=== PATIENT | female | born 1960 | race Caucasian/White ===

== ENCOUNTER 2021-01-03 14:49 | Inpatient (IN) | payer BC ==
[2021-01-03] MEDS ORDERED: Simvastatin 40 MG TAB PO SCH (21:00)
[2021-01-03] MEDS ORDERED: Fluticasone Propionate Nasal Spray 16 gm Bottle NASAL SCH (21:00)
[2021-01-03] MEDS ORDERED: Loperamide HCl 2 MG CAP PO PRN (21:05)
[2021-01-03] MEDS ORDERED: Mag-Al Plus 1200 MG/1200 MG/120 MG/30 ML UDCUP PO PRN (21:05)
[2021-01-03] MEDS ORDERED: Dextrose 5% in Water 1,000 ML IV PRN (21:15)
[2021-01-03] MEDS ORDERED: Dextrose 50% Abboject 50 ML SYRINGE IVP PRN (21:15)
[2021-01-03] MEDS: tiZANidine HCl 4 MG TAB PO SCH (21:24)
[2021-01-03] MEDS: Loratadine 10 MG TAB PO SCH (21:24)
[2021-01-03] MEDS: Citalopram 20 MG TAB PO SCH (21:25)
[2021-01-03] MEDS: Lisinopril 20 MG TAB PO SCH ×2 (21:25→22:49)
[2021-01-03] MEDS: Lantus 1000 UNITS/10 ML VIAL SC SCH (21:26)
[2021-01-03] MEDS: Rifampin 300 MG CAP PO SCH (21:26)
[2021-01-03] MEDS: HumaLOG 300 UNITS/3 ML VIAL SC PRN ×2 (21:27→22:13)
[2021-01-03] MEDS: Acetaminophen 325 MG TAB PO SCH (23:25)
[2021-01-04 05:45] LABS: ALT (SGPT) 15 U/L (8-55); AST (SGOT) 20 U/L (5-34); Albumin 3.2 g/dL (3.4-4.8); Alkaline Phosphatase 135 U/L (40-110); Anion Gap 16 mmol/L (10-20); BUN (Urea Nitrogen) 28 mg/dL (9.8-20.1); Bilirubin, Total 0.4 mg/dL (0.2-1.2); Calc. Creatinine Clearance 73 mL/min (70-130); Calcium 9.6 mg/dL (7.8-10.44); Carbon Dioxide 26 mmol/L (23-31); Chloride 97 mmol/L (98-107); Globulin 3.4 g/dL (2.4-3.5); Glucose 233 mg/dL (80-115); Protein, Total 6.6 g/dL (5.8-8.1); Sodium 136 mmol/L (136-145)
[2021-01-04] MEDS: HumaLOG 300 UNITS/3 ML VIAL SC PRN ×4 (05:55→21:07)
[2021-01-04 05:57] LABS: Hypochromia SLIGHT = 6-15 cells (100X) (0-5/hpf); MDiff Complete? YES; Mean Corpuscular HGB CONC 29.7 g/dL (32.0-36.0); Mean Corpuscular Hemoglobin 25.7 pg (27.0-31.0); Mean Corpuscular Volume 86.6 fL (78.0-98.0); Mean Platelet Volume 6.4 fL (7.4-10.4); Platelet Count 335 thou/uL (130-400); Platelet Morphology Comment Appears Adequate; RBC Distribution Width 16.4 % (11.5-14.5); Red Blood Cell (RBC) Count 3.51 mill/uL (4.20-5.40); White Blood Cell (WBC) Count 8.6 thou/uL (4.8-10.8)
[2021-01-04] MEDS: Acetaminophen 325 MG TAB PO SCH ×4 (05:59→22:49)
[2021-01-04] MEDS: Lisinopril 20 MG TAB PO SCH ×2 (08:41→21:07)
[2021-01-04] MEDS: Multivitamin W/ Minerals 1 TAB PO SCH (08:41)
[2021-01-04] MEDS: Rifampin 300 MG CAP PO SCH ×2 (08:41→21:08)
[2021-01-04] MEDS: Amlodipine 5 MG TAB PO SCH (08:41)
[2021-01-04] MEDS: Magnesium Oxide 400 MG TAB PO SCH ×2 (08:42→16:27)
[2021-01-04] MEDS: Chlorthalidone 25 MG TAB PO SCH (08:42)
[2021-01-04] MEDS: Aspirin 81 mg Enteric Coated Tablet PO SCH (08:42)
[2021-01-04] MEDS: LACTINEX 1 TAB PO SCH (08:43)
[2021-01-04] MEDS: Ferrous Sulfate 325 MG TAB PO SCH (08:43)
[2021-01-04] MEDS: Enoxaparin Sodium 40 MG/0.4 ML SYRINGE SC SCH (08:43)
[2021-01-04] MEDS: DAPTOmycin 500 MG VIAL SLOW IVP SCH (11:58)
[2021-01-04] MEDS: Lantus 1000 UNITS/10 ML VIAL SC SCH (21:06)
[2021-01-04] MEDS: Citalopram 20 MG TAB PO SCH (21:07)
[2021-01-04] MEDS: tiZANidine HCl 4 MG TAB PO SCH (21:08)
[2021-01-04] MEDS: Loratadine 10 MG TAB PO SCH (21:08)
[2021-01-04] MEDS: Melatonin 3 MG TAB PO SCH (21:08)
[2021-01-05] MEDS: HumaLOG 300 UNITS/3 ML VIAL SC PRN ×3 (05:49→21:25)
[2021-01-05] MEDS: Acetaminophen 325 MG TAB PO SCH ×3 (05:51→17:54)
[2021-01-05] MEDS ORDERED: Fluticasone Propionate Nasal Spray 16 gm Bottle NASAL SCH (09:00)
[2021-01-05] MEDS: Amlodipine 5 MG TAB PO SCH (09:01)
[2021-01-05] MEDS: Rifampin 300 MG CAP PO SCH ×2 (09:01→21:26)
[2021-01-05] MEDS: Enoxaparin Sodium 40 MG/0.4 ML SYRINGE SC SCH (09:01)
[2021-01-05] MEDS: Multivitamin W/ Minerals 1 TAB PO SCH (09:01)
[2021-01-05] MEDS: Magnesium Oxide 400 MG TAB PO SCH ×2 (09:02→17:53)
[2021-01-05] MEDS: Chlorthalidone 25 MG TAB PO SCH (09:02)
[2021-01-05] MEDS: Ferrous Sulfate 325 MG TAB PO SCH (09:02)
[2021-01-05] MEDS: Aspirin 81 mg Enteric Coated Tablet PO SCH (09:02)
[2021-01-05] MEDS: LACTINEX 1 TAB PO SCH (09:03)
[2021-01-05] MEDS: Lisinopril 20 MG TAB PO SCH ×2 (09:03→21:26)
[2021-01-05] MEDS: DAPTOmycin 500 MG VIAL SLOW IVP SCH (12:24)
[2021-01-05] MEDS ORDERED: HumaLOG 300 UNITS/3 ML VIAL SC SCH (17:15)
[2021-01-05] MEDS: Lantus 1000 UNITS/10 ML VIAL SC SCH (21:24)
[2021-01-05] MEDS: Fluticasone Propionate Nasal Spray 16 gm Bottle NASAL SCH (21:24)
[2021-01-05] MEDS: Melatonin 3 MG TAB PO SCH (21:25)
[2021-01-05] MEDS: Loratadine 10 MG TAB PO SCH (21:26)
[2021-01-05] MEDS: Citalopram 20 MG TAB PO SCH (21:26)
[2021-01-05] MEDS: tiZANidine HCl 4 MG TAB PO SCH (21:27)
[2021-01-06] MEDS: HumaLOG 300 UNITS/3 ML VIAL SC PRN ×4 (05:56→20:40)
[2021-01-06] MEDS: Acetaminophen 325 MG TAB PO SCH ×3 (06:39→18:10)
[2021-01-06] MEDS: Ferrous Sulfate 325 MG TAB PO SCH (09:04)
[2021-01-06] MEDS: Magnesium Oxide 400 MG TAB PO SCH ×2 (09:04→18:09)
[2021-01-06] MEDS: Aspirin 81 mg Enteric Coated Tablet PO SCH (09:05)
[2021-01-06] MEDS: Amlodipine 5 MG TAB PO SCH (09:05)
[2021-01-06] MEDS: Chlorthalidone 25 MG TAB PO SCH (09:05)
[2021-01-06] MEDS: Enoxaparin Sodium 40 MG/0.4 ML SYRINGE SC SCH (09:06)
[2021-01-06] MEDS: Lantus 1000 UNITS/10 ML VIAL SC SCH ×2 (09:07→20:40)
[2021-01-06] MEDS: Fluticasone Propionate Nasal Spray 16 gm Bottle NASAL SCH ×2 (09:07→20:40)
[2021-01-06] MEDS: LACTINEX 1 TAB PO SCH (09:08)
[2021-01-06] MEDS: Lisinopril 20 MG TAB PO SCH ×2 (09:08→20:41)
[2021-01-06] MEDS: Multivitamin W/ Minerals 1 TAB PO SCH (09:09)
[2021-01-06] MEDS: Rifampin 300 MG CAP PO SCH ×2 (09:10→20:50)
[2021-01-06] MEDS: DAPTOmycin 500 MG VIAL SLOW IVP SCH (12:41)
[2021-01-06] MEDS: tiZANidine HCl 4 MG TAB PO SCH (20:41)
[2021-01-06] MEDS: Loratadine 10 MG TAB PO SCH (20:43)
[2021-01-06] MEDS: Melatonin 3 MG TAB PO SCH (20:43)
[2021-01-06] MEDS: Citalopram 20 MG TAB PO SCH (20:43)
[2021-01-07] MEDS: Acetaminophen 325 MG TAB PO SCH ×5 (01:45→23:24)
[2021-01-07] MEDS: HumaLOG 300 UNITS/3 ML VIAL SC PRN ×4 (05:37→21:06)
[2021-01-07] MEDS: Amlodipine 5 MG TAB PO SCH (08:40)
[2021-01-07] MEDS: Magnesium Oxide 400 MG TAB PO SCH ×2 (08:40→17:29)
[2021-01-07] MEDS: Ferrous Sulfate 325 MG TAB PO SCH (08:40)
[2021-01-07] MEDS: Chlorthalidone 25 MG TAB PO SCH (08:41)
[2021-01-07] MEDS: Aspirin 81 mg Enteric Coated Tablet PO SCH (08:41)
[2021-01-07] MEDS: Enoxaparin Sodium 40 MG/0.4 ML SYRINGE SC SCH (08:42)
[2021-01-07] MEDS: Fluticasone Propionate Nasal Spray 16 gm Bottle NASAL SCH ×2 (08:42→21:03)
[2021-01-07] MEDS: LACTINEX 1 TAB PO SCH (08:43)
[2021-01-07] MEDS: Lantus 1000 UNITS/10 ML VIAL SC SCH ×2 (08:43→21:05)
[2021-01-07] MEDS: Lisinopril 20 MG TAB PO SCH ×2 (08:43→21:05)
[2021-01-07] MEDS: Multivitamin W/ Minerals 1 TAB PO SCH (08:44)
[2021-01-07] MEDS: Rifampin 300 MG CAP PO SCH ×2 (09:52→21:04)
[2021-01-07] MEDS: DAPTOmycin 500 MG VIAL SLOW IVP SCH (12:48)
[2021-01-07] MEDS: Sterile Water 10 ML VIAL FS SCH (13:06)
[2021-01-07] MEDS: Loratadine 10 MG TAB PO SCH (21:04)
[2021-01-07] MEDS: Citalopram 20 MG TAB PO SCH (21:04)
[2021-01-07] MEDS: Melatonin 3 MG TAB PO SCH (21:05)
[2021-01-07] MEDS: tiZANidine HCl 4 MG TAB PO SCH (21:05)
[2021-01-08 05:48] LABS: #Basophils 0.1 thou/uL (0.0-0.2); #Eosinphils 0.6 thou/uL (0.0-0.7); #Lymphocytes 1.5 thou/uL (1.20-3.40); #Monocytes 0.8 thou/uL (0.11-0.59); #Neutrophils 4.5 thou/uL (1.40-6.50); %Eosinophils 8.6 % (0.0-10.0); %Lymphocytes 19.9 % (21.0-51.0); %Monocytes 10.6 % (0.0-10.0); Hemoglobin 9.2 g/dL (12.0-16.0); Mean Corpuscular HGB CONC 31.4 g/dL (32.0-36.0); Mean Corpuscular Hemoglobin 26.8 pg (27.0-31.0); Mean Corpuscular Volume 85.2 fL (78.0-98.0); Mean Platelet Volume 6.3 fL (7.4-10.4); Platelet Count 310 thou/uL (130-400); RBC Distribution Width 16.1 % (11.5-14.5); Red Blood Cell (RBC) Count 3.44 mill/uL (4.20-5.40); White Blood Cell (WBC) Count 7.5 thou/uL (4.8-10.8)
[2021-01-08 06:01] LABS: ALT (SGPT) 17 U/L (8-55); AST (SGOT) 15 U/L (5-34); Albumin 3.2 g/dL (3.4-4.8); Alkaline Phosphatase 117 U/L (40-110); Anion Gap 14 mmol/L (10-20); BUN (Urea Nitrogen) 30 mg/dL (9.8-20.1); Bilirubin, Total 0.4 mg/dL (0.2-1.2); CRP (Inflammatory) 3.47 mg/dL (= or < 0.5); Calc. Creatinine Clearance 64 mL/min (70-130); Calcium 9.9 mg/dL (7.8-10.44); Carbon Dioxide 26 mmol/L (23-31); Chloride 99 mmol/L (98-107); Globulin 3.4 g/dL (2.4-3.5); Glucose 284 mg/dL (80-115); Potassium 3.4 mmol/L (3.5-5.1); Protein, Total 6.6 g/dL (5.8-8.1); Sodium 136 mmol/L (136-145)
[2021-01-08] MEDS: Acetaminophen 325 MG TAB PO SCH ×5 (06:12→23:17)
[2021-01-08] MEDS: HumaLOG 300 UNITS/3 ML VIAL SC PRN ×4 (06:13→20:51)
[2021-01-08] MEDS: Enoxaparin Sodium 40 MG/0.4 ML SYRINGE SC SCH (09:22)
[2021-01-08] MEDS: Fluticasone Propionate Nasal Spray 16 gm Bottle NASAL SCH ×2 (09:22→20:43)
[2021-01-08] MEDS: Aspirin 81 mg Enteric Coated Tablet PO SCH (09:23)
[2021-01-08] MEDS: Multivitamin W/ Minerals 1 TAB PO SCH (09:23)
[2021-01-08] MEDS: Magnesium Oxide 400 MG TAB PO SCH ×2 (09:23→17:28)
[2021-01-08] MEDS: Rifampin 300 MG CAP PO SCH ×2 (09:24→20:43)
[2021-01-08] MEDS: Ferrous Sulfate 325 MG TAB PO SCH (09:24)
[2021-01-08] MEDS: Lisinopril 20 MG TAB PO SCH ×2 (09:24→20:44)
[2021-01-08] MEDS: Amlodipine 5 MG TAB PO SCH (09:24)
[2021-01-08] MEDS: Chlorthalidone 25 MG TAB PO SCH (09:24)
[2021-01-08] MEDS: LACTINEX 1 TAB PO SCH (09:25)
[2021-01-08] MEDS: Lantus 1000 UNITS/10 ML VIAL SC SCH (09:26)
[2021-01-08] MEDS: DAPTOmycin 500 MG VIAL SLOW IVP SCH (12:02)
[2021-01-08] MEDS: Sterile Water 10 ML VIAL FS SCH (12:04)
[2021-01-08] MEDS ORDERED: Potassium Chloride 20 MEQ TAB PO SCH (12:15)
[2021-01-08] MEDS: Melatonin 3 MG TAB PO SCH (20:44)
[2021-01-08] MEDS: tiZANidine HCl 4 MG TAB PO SCH (20:44)
[2021-01-08] MEDS: Loratadine 10 MG TAB PO SCH (20:45)
[2021-01-08] MEDS: Citalopram 20 MG TAB PO SCH (20:45)
[2021-01-08] MEDS ORDERED: Lantus 1000 UNITS/10 ML VIAL SC SCH (21:00)
[2021-01-09] MEDS: HumaLOG 300 UNITS/3 ML VIAL SC PRN ×3 (05:04→21:18)
[2021-01-09] MEDS: Acetaminophen 325 MG TAB PO SCH ×3 (05:04→17:04)
[2021-01-09] MEDS: Enoxaparin Sodium 40 MG/0.4 ML SYRINGE SC SCH (08:50)
[2021-01-09] MEDS: Lisinopril 20 MG TAB PO SCH ×2 (08:51→21:20)
[2021-01-09] MEDS: Chlorthalidone 25 MG TAB PO SCH (08:51)
[2021-01-09] MEDS: Amlodipine 5 MG TAB PO SCH (08:53)
[2021-01-09] MEDS: Aspirin 81 mg Enteric Coated Tablet PO SCH (08:53)
[2021-01-09] MEDS: Ferrous Sulfate 325 MG TAB PO SCH (08:54)
[2021-01-09] MEDS: Magnesium Oxide 400 MG TAB PO SCH ×2 (08:55→17:04)
[2021-01-09] MEDS: LACTINEX 1 TAB PO SCH (08:55)
[2021-01-09] MEDS: Multivitamin W/ Minerals 1 TAB PO SCH (08:56)
[2021-01-09] MEDS: Fluticasone Propionate Nasal Spray 16 gm Bottle NASAL SCH ×2 (08:57→21:22)
[2021-01-09] MEDS: Lantus 1000 UNITS/10 ML VIAL SC SCH ×2 (09:02→21:19)
[2021-01-09] MEDS: Rifampin 300 MG CAP PO SCH ×2 (09:50→21:23)
[2021-01-09] MEDS: DAPTOmycin 500 MG VIAL SLOW IVP SCH (12:32)
[2021-01-09] MEDS ORDERED: Sodium Chloride 0.9% 20 ML ONE (12:36)
[2021-01-09] MEDS: Sodium Chloride 0.9% 20 ML ONE (12:37)
[2021-01-09] MEDS: Sterile Water 10 ML VIAL FS SCH (12:40)
[2021-01-09] MEDS ORDERED: Dextrose 50% Abboject 50 ML SYRINGE SLOW IVP PRN (13:05)
[2021-01-09] MEDS: Insulin Regular 300 UNITS/3 ML VIAL SC PRN (17:09)
[2021-01-09] MEDS: Loratadine 10 MG TAB PO SCH (21:22)
[2021-01-09] MEDS: Melatonin 3 MG TAB PO SCH (21:22)
[2021-01-09] MEDS: Citalopram 20 MG TAB PO SCH (21:22)
[2021-01-09] MEDS: tiZANidine HCl 4 MG TAB PO SCH (21:23)
[2021-01-10] MEDS: Acetaminophen 325 MG TAB PO SCH ×5 (01:00→23:29)
[2021-01-10] MEDS: Insulin Regular 300 UNITS/3 ML VIAL SC PRN ×3 (05:43→17:34)
[2021-01-10] MEDS: Aspirin 81 mg Enteric Coated Tablet PO SCH (11:57)
[2021-01-10] MEDS: Amlodipine 5 MG TAB PO SCH (11:57)
[2021-01-10] MEDS: Magnesium Oxide 400 MG TAB PO SCH ×2 (11:57→17:31)
[2021-01-10] MEDS: Ferrous Sulfate 325 MG TAB PO SCH (11:57)
[2021-01-10] MEDS: Enoxaparin Sodium 40 MG/0.4 ML SYRINGE SC SCH (11:58)
[2021-01-10] MEDS: Chlorthalidone 25 MG TAB PO SCH (11:58)
[2021-01-10] MEDS: Lantus 1000 UNITS/10 ML VIAL SC SCH ×2 (11:59→21:49)
[2021-01-10] MEDS: Fluticasone Propionate Nasal Spray 16 gm Bottle NASAL SCH ×2 (11:59→21:50)
[2021-01-10] MEDS: LACTINEX 1 TAB PO SCH (12:03)
[2021-01-10] MEDS: Lisinopril 20 MG TAB PO SCH ×2 (12:03→21:48)
[2021-01-10] MEDS: Rifampin 300 MG CAP PO SCH ×2 (12:04→21:49)
[2021-01-10] MEDS: Multivitamin W/ Minerals 1 TAB PO SCH (12:04)
[2021-01-10] MEDS: Sterile Water 10 ML VIAL FS SCH (12:51)
[2021-01-10] MEDS: DAPTOmycin 500 MG VIAL SLOW IVP SCH (12:51)
[2021-01-10] MEDS: Citalopram 20 MG TAB PO SCH (21:47)
[2021-01-10] MEDS: Melatonin 3 MG TAB PO SCH (21:47)
[2021-01-10] MEDS: Loratadine 10 MG TAB PO SCH (21:48)
[2021-01-10] MEDS: tiZANidine HCl 4 MG TAB PO SCH (21:48)
[2021-01-10] MEDS: HumaLOG 300 UNITS/3 ML VIAL SC PRN (21:49)
[2021-01-11] MEDS: Acetaminophen 325 MG TAB PO SCH ×4 (06:00→23:30)
[2021-01-11] MEDS: Insulin Regular 300 UNITS/3 ML VIAL SC PRN ×3 (06:07→17:26)
[2021-01-11] MEDS: Magnesium Oxide 400 MG TAB PO SCH ×2 (08:58→17:25)
[2021-01-11] MEDS: Ferrous Sulfate 325 MG TAB PO SCH (08:58)
[2021-01-11] MEDS: Aspirin 81 mg Enteric Coated Tablet PO SCH (08:59)
[2021-01-11] MEDS: Amlodipine 5 MG TAB PO SCH (08:59)
[2021-01-11] MEDS: Enoxaparin Sodium 40 MG/0.4 ML SYRINGE SC SCH (09:00)
[2021-01-11] MEDS: Fluticasone Propionate Nasal Spray 16 gm Bottle NASAL SCH ×2 (09:00→21:48)
[2021-01-11] MEDS: Chlorthalidone 25 MG TAB PO SCH (09:00)
[2021-01-11] MEDS: Lantus 1000 UNITS/10 ML VIAL SC SCH ×2 (09:01→21:50)
[2021-01-11] MEDS: LACTINEX 1 TAB PO SCH (09:01)
[2021-01-11] MEDS: Lisinopril 20 MG TAB PO SCH ×2 (09:02→21:48)
[2021-01-11] MEDS: Rifampin 300 MG CAP PO SCH ×2 (09:03→21:48)
[2021-01-11] MEDS: Multivitamin W/ Minerals 1 TAB PO SCH (09:03)
[2021-01-11] MEDS: DAPTOmycin 500 MG VIAL SLOW IVP SCH (12:44)
[2021-01-11] MEDS: Sterile Water 10 ML VIAL FS SCH (12:44)
[2021-01-11] MEDS: Melatonin 3 MG TAB PO SCH (21:48)
[2021-01-11] MEDS: tiZANidine HCl 4 MG TAB PO SCH (21:48)
[2021-01-11] MEDS: HumaLOG 300 UNITS/3 ML VIAL SC PRN (21:49)
[2021-01-11] MEDS: Citalopram 20 MG TAB PO SCH (21:49)
[2021-01-11] MEDS: Loratadine 10 MG TAB PO SCH (21:49)
[2021-01-12] MEDS: Acetaminophen 325 MG TAB PO SCH ×4 (06:00→23:51)
[2021-01-12] MEDS: Insulin Regular 300 UNITS/3 ML VIAL SC PRN ×3 (06:00→17:46)
[2021-01-12] MEDS: Ferrous Sulfate 325 MG TAB PO SCH (09:00)
[2021-01-12] MEDS: Magnesium Oxide 400 MG TAB PO SCH ×2 (09:00→17:45)
[2021-01-12] MEDS: Amlodipine 5 MG TAB PO SCH (09:01)
[2021-01-12] MEDS: Aspirin 81 mg Enteric Coated Tablet PO SCH (09:01)
[2021-01-12] MEDS: Enoxaparin Sodium 40 MG/0.4 ML SYRINGE SC SCH (09:01)
[2021-01-12] MEDS: Chlorthalidone 25 MG TAB PO SCH (09:01)
[2021-01-12] MEDS: Fluticasone Propionate Nasal Spray 16 gm Bottle NASAL SCH ×2 (09:02→21:30)
[2021-01-12] MEDS: Lantus 1000 UNITS/10 ML VIAL SC SCH ×2 (09:02→21:27)
[2021-01-12] MEDS: LACTINEX 1 TAB PO SCH (09:02)
[2021-01-12] MEDS: Lisinopril 20 MG TAB PO SCH ×2 (09:03→21:26)
[2021-01-12] MEDS: Multivitamin W/ Minerals 1 TAB PO SCH (09:04)
[2021-01-12] MEDS: Rifampin 300 MG CAP PO SCH ×2 (09:07→23:19)
[2021-01-12] MEDS: DAPTOmycin 500 MG VIAL SLOW IVP SCH (12:14)
[2021-01-12] MEDS: Sterile Water 10 ML VIAL FS SCH (12:15)
[2021-01-12] MEDS: Melatonin 3 MG TAB PO SCH (21:25)
[2021-01-12] MEDS: Citalopram 20 MG TAB PO SCH (21:25)
[2021-01-12] MEDS: tiZANidine HCl 4 MG TAB PO SCH (21:25)
[2021-01-12] MEDS: Loratadine 10 MG TAB PO SCH (21:26)
[2021-01-12] MEDS: HumaLOG 300 UNITS/3 ML VIAL SC PRN (21:29)
[2021-01-13] MEDS: Acetaminophen 325 MG TAB PO SCH ×4 (05:57→23:43)
[2021-01-13] MEDS: Enoxaparin Sodium 40 MG/0.4 ML SYRINGE SC SCH (09:52)
[2021-01-13] MEDS: Rifampin 300 MG CAP PO SCH ×2 (09:53→21:12)
[2021-01-13] MEDS: Lisinopril 20 MG TAB PO SCH ×2 (09:53→21:12)
[2021-01-13] MEDS: Multivitamin W/ Minerals 1 TAB PO SCH (09:54)
[2021-01-13] MEDS: Aspirin 81 mg Enteric Coated Tablet PO SCH (09:54)
[2021-01-13] MEDS: Chlorthalidone 25 MG TAB PO SCH (09:54)
[2021-01-13] MEDS: Amlodipine 5 MG TAB PO SCH (09:54)
[2021-01-13] MEDS: Magnesium Oxide 400 MG TAB PO SCH ×2 (09:55→17:48)
[2021-01-13] MEDS: Lantus 1000 UNITS/10 ML VIAL SC SCH ×2 (09:55→21:16)
[2021-01-13] MEDS: Ferrous Sulfate 325 MG TAB PO SCH (09:55)
[2021-01-13] MEDS: Fluticasone Propionate Nasal Spray 16 gm Bottle NASAL SCH ×2 (09:55→21:13)
[2021-01-13] MEDS: LACTINEX 1 TAB PO SCH (09:56)
[2021-01-13] MEDS: DAPTOmycin 500 MG VIAL SLOW IVP SCH (12:58)
[2021-01-13] MEDS: Sterile Water 10 ML VIAL FS SCH (12:58)
[2021-01-13] MEDS: Insulin Regular 300 UNITS/3 ML VIAL SC PRN (17:51)
[2021-01-13] MEDS: Melatonin 3 MG TAB PO SCH (21:12)
[2021-01-13] MEDS: Loratadine 10 MG TAB PO SCH (21:12)
[2021-01-13] MEDS: tiZANidine HCl 4 MG TAB PO SCH (21:12)
[2021-01-13] MEDS: Citalopram 20 MG TAB PO SCH (21:12)
[2021-01-14] MEDS: Magnesium Oxide 400 MG TAB PO SCH ×2 (05:12→17:13)
[2021-01-14] MEDS: Acetaminophen 325 MG TAB PO SCH ×4 (05:12→23:49)
[2021-01-14] MEDS: Ferrous Sulfate 325 MG TAB PO SCH (05:12)
[2021-01-14] MEDS: Chlorthalidone 25 MG TAB PO SCH (08:07)
[2021-01-14] MEDS: Fluticasone Propionate Nasal Spray 16 gm Bottle NASAL SCH ×2 (08:07→21:13)
[2021-01-14] MEDS: Aspirin 81 mg Enteric Coated Tablet PO SCH (08:07)
[2021-01-14] MEDS: Lisinopril 20 MG TAB PO SCH ×2 (08:08→21:17)
[2021-01-14] MEDS: Multivitamin W/ Minerals 1 TAB PO SCH (08:08)
[2021-01-14] MEDS: Lantus 1000 UNITS/10 ML VIAL SC SCH ×2 (08:08→21:16)
[2021-01-14] MEDS: Amlodipine 5 MG TAB PO SCH (08:08)
[2021-01-14] MEDS: Enoxaparin Sodium 40 MG/0.4 ML SYRINGE SC SCH (08:09)
[2021-01-14] MEDS: LACTINEX 1 TAB PO SCH (08:10)
[2021-01-14] MEDS: Rifampin 300 MG CAP PO SCH ×2 (08:18→21:14)
[2021-01-14] MEDS: Sterile Water 10 ML VIAL FS SCH (12:54)
[2021-01-14] MEDS: DAPTOmycin 500 MG VIAL SLOW IVP SCH (12:54)
[2021-01-14] MEDS: Insulin Regular 300 UNITS/3 ML VIAL SC PRN (17:18)
[2021-01-14] MEDS: tiZANidine HCl 4 MG TAB PO SCH (21:14)
[2021-01-14] MEDS: Melatonin 3 MG TAB PO SCH (21:14)
[2021-01-14] MEDS: Loratadine 10 MG TAB PO SCH (21:15)
[2021-01-14] MEDS: Citalopram 20 MG TAB PO SCH (21:15)
[2021-01-14] MEDS: HumaLOG 300 UNITS/3 ML VIAL SC PRN (21:18)
[2021-01-15] MEDS: Acetaminophen 325 MG TAB PO SCH ×3 (05:16→17:36)
[2021-01-15 05:43] LABS: ALT (SGPT) 13 U/L (8-55); AST (SGOT) 15 U/L (5-34); Albumin 3.1 g/dL (3.4-4.8); Alkaline Phosphatase 90 U/L (40-110); Anion Gap 13 mmol/L (10-20); BUN (Urea Nitrogen) 55 mg/dL (9.8-20.1); Bilirubin, Total 0.3 mg/dL (0.2-1.2); CRP (Inflammatory) 1.02 mg/dL (= or < 0.5); Calc. Creatinine Clearance 69 mL/min (70-130); Calcium 9.4 mg/dL (7.8-10.44); Carbon Dioxide 24 mmol/L (23-31); Chloride 98 mmol/L (98-107); Globulin 3.2 g/dL (2.4-3.5); Glucose 244 mg/dL (80-115); Potassium 3.4 mmol/L (3.5-5.1); Protein, Total 6.3 g/dL (5.8-8.1); Sodium 132 mmol/L (136-145)
[2021-01-15 05:57] LABS: Band 1 % (5-11); Elliptocytes SLIGHT = 2-5 cells (100X) (0-1/hpf); Eosinophils 7 % (0-10); Hemoglobin 9.4 g/dL (12.0-16.0); Lymphocytes 27 % (21-51); MDiff Complete? YES; Mean Corpuscular HGB CONC 31.2 g/dL (32.0-36.0); Mean Corpuscular Hemoglobin 26.5 pg (27.0-31.0); Mean Corpuscular Volume 85.1 fL (78.0-98.0); Mean Platelet Volume 6.3 fL (7.4-10.4); Monocytes 8 % (0-10); Neutrophil 55 % (42-75); Platelet Count 271 thou/uL (130-400); Platelet Morphology Comment Appears Adequate; RBC Distribution Width 15.6 % (11.5-14.5); Reactive Lymphocytes 2 % (0-10); Red Blood Cell (RBC) Count 3.53 mill/uL (4.20-5.40)
[2021-01-15] MEDS: Lantus 1000 UNITS/10 ML VIAL SC SCH ×2 (08:37→21:09)
[2021-01-15] MEDS: Insulin Regular 300 UNITS/3 ML VIAL SC PRN ×2 (08:37→12:51)
[2021-01-15] MEDS: Magnesium Oxide 400 MG TAB PO SCH ×2 (08:38→17:36)
[2021-01-15] MEDS: Ferrous Sulfate 325 MG TAB PO SCH (08:39)
[2021-01-15] MEDS: Aspirin 81 mg Enteric Coated Tablet PO SCH (10:24)
[2021-01-15] MEDS: Multivitamin W/ Minerals 1 TAB PO SCH (10:24)
[2021-01-15] MEDS: Chlorthalidone 25 MG TAB PO SCH (10:24)
[2021-01-15] MEDS: Amlodipine 5 MG TAB PO SCH (10:25)
[2021-01-15] MEDS: Rifampin 300 MG CAP PO SCH ×2 (10:25→21:12)
[2021-01-15] MEDS: Lisinopril 20 MG TAB PO SCH ×2 (10:25→21:12)
[2021-01-15] MEDS: Enoxaparin Sodium 40 MG/0.4 ML SYRINGE SC SCH (10:26)
[2021-01-15] MEDS: Fluticasone Propionate Nasal Spray 16 gm Bottle NASAL SCH ×2 (10:27→21:10)
[2021-01-15] MEDS: LACTINEX 1 TAB PO SCH (10:28)
[2021-01-15] MEDS: DAPTOmycin 500 MG VIAL SLOW IVP SCH (12:57)
[2021-01-15] MEDS: Sterile Water 10 ML VIAL FS SCH (12:57)
[2021-01-15] MEDS ORDERED: Potassium Chloride 20 MEQ TAB PO SCH (14:45)
[2021-01-15] MEDS: Citalopram 20 MG TAB PO SCH (21:11)
[2021-01-15] MEDS: tiZANidine HCl 4 MG TAB PO SCH (21:11)
[2021-01-15] MEDS: Melatonin 3 MG TAB PO SCH (21:11)
[2021-01-15] MEDS: Loratadine 10 MG TAB PO SCH (21:11)
[2021-01-16] MEDS: Acetaminophen 325 MG TAB PO SCH ×5 (00:55→23:16)
[2021-01-16] MEDS: Insulin Regular 300 UNITS/3 ML VIAL SC PRN ×4 (05:44→20:58)
[2021-01-16] MEDS: Lisinopril 20 MG TAB PO SCH ×2 (09:24→20:59)
[2021-01-16] MEDS: Enoxaparin Sodium 40 MG/0.4 ML SYRINGE SC SCH (09:24)
[2021-01-16] MEDS: Multivitamin W/ Minerals 1 TAB PO SCH (09:24)
[2021-01-16] MEDS: Amlodipine 5 MG TAB PO SCH (09:24)
[2021-01-16] MEDS: LACTINEX 1 TAB PO SCH (09:24)
[2021-01-16] MEDS: Aspirin 81 mg Enteric Coated Tablet PO SCH (09:25)
[2021-01-16] MEDS: Ferrous Sulfate 325 MG TAB PO SCH (09:25)
[2021-01-16] MEDS: Magnesium Oxide 400 MG TAB PO SCH ×2 (09:27→17:02)
[2021-01-16] MEDS: Fluticasone Propionate Nasal Spray 16 gm Bottle NASAL SCH ×2 (09:27→20:57)
[2021-01-16] MEDS: Rifampin 300 MG CAP PO SCH ×2 (09:33→20:59)
[2021-01-16] MEDS: Lantus 1000 UNITS/10 ML VIAL SC SCH ×2 (09:47→20:57)
[2021-01-16] MEDS: DAPTOmycin 500 MG VIAL SLOW IVP SCH ×2 (12:36→12:37)
[2021-01-16] MEDS: Sterile Water 10 ML VIAL FS SCH (12:37)
[2021-01-16] MEDS: Loratadine 10 MG TAB PO SCH (20:58)
[2021-01-16] MEDS: Melatonin 3 MG TAB PO SCH (20:58)
[2021-01-16] MEDS: Citalopram 20 MG TAB PO SCH (20:59)
[2021-01-16] MEDS: tiZANidine HCl 4 MG TAB PO SCH (20:59)
[2021-01-17] MEDS: Acetaminophen 325 MG TAB PO SCH ×4 (05:34→23:10)
[2021-01-17] MEDS: Insulin Regular 300 UNITS/3 ML VIAL SC PRN ×3 (05:34→17:05)
[2021-01-17 05:57] LABS: Anion Gap 13 mmol/L (10-20); BUN (Urea Nitrogen) 54 mg/dL (9.8-20.1); Calc. Creatinine Clearance 72 mL/min (70-130); Calcium 9.2 mg/dL (7.8-10.44); Carbon Dioxide 24 mmol/L (23-31); Chloride 99 mmol/L (98-107); Glucose 246 mg/dL (80-115); Potassium 3.9 mmol/L (3.5-5.1); Sodium 132 mmol/L (136-145)
[2021-01-17] MEDS: Enoxaparin Sodium 40 MG/0.4 ML SYRINGE SC SCH (09:01)
[2021-01-17] MEDS: LACTINEX 1 TAB PO SCH (09:02)
[2021-01-17] MEDS: Amlodipine 5 MG TAB PO SCH (09:02)
[2021-01-17] MEDS: Multivitamin W/ Minerals 1 TAB PO SCH (09:02)
[2021-01-17] MEDS: Ferrous Sulfate 325 MG TAB PO SCH (09:02)
[2021-01-17] MEDS: Lisinopril 20 MG TAB PO SCH ×2 (09:02→20:46)
[2021-01-17] MEDS: Rifampin 300 MG CAP PO SCH ×2 (09:03→20:49)
[2021-01-17] MEDS: Magnesium Oxide 400 MG TAB PO SCH ×2 (09:03→17:19)
[2021-01-17] MEDS: Fluticasone Propionate Nasal Spray 16 gm Bottle NASAL SCH ×2 (09:04→20:44)
[2021-01-17] MEDS: Aspirin 81 mg Enteric Coated Tablet PO SCH (09:04)
[2021-01-17] MEDS: Lantus 1000 UNITS/10 ML VIAL SC SCH ×2 (09:08→20:45)
[2021-01-17] MEDS: Sterile Water 10 ML VIAL FS SCH (12:36)
[2021-01-17] MEDS: Melatonin 3 MG TAB PO SCH (20:45)
[2021-01-17] MEDS: Citalopram 20 MG TAB PO SCH (20:45)
[2021-01-17] MEDS: tiZANidine HCl 4 MG TAB PO SCH (20:45)
[2021-01-17] MEDS: Loratadine 10 MG TAB PO SCH (20:45)
[2021-01-18] MEDS: Acetaminophen 325 MG TAB PO SCH ×3 (05:56→17:34)
[2021-01-18] MEDS: Enoxaparin Sodium 40 MG/0.4 ML SYRINGE SC SCH (09:21)
[2021-01-18] MEDS: Multivitamin W/ Minerals 1 TAB PO SCH (09:22)
[2021-01-18] MEDS: Aspirin 81 mg Enteric Coated Tablet PO SCH (09:22)
[2021-01-18] MEDS: LACTINEX 1 TAB PO SCH (09:22)
[2021-01-18] MEDS: Ferrous Sulfate 325 MG TAB PO SCH (09:22)
[2021-01-18] MEDS: Magnesium Oxide 400 MG TAB PO SCH ×2 (09:23→17:35)
[2021-01-18] MEDS: Lantus 1000 UNITS/10 ML VIAL SC SCH ×2 (09:37→20:52)
[2021-01-18] MEDS: Amlodipine 5 MG TAB PO SCH (09:46)
[2021-01-18] MEDS: Fluticasone Propionate Nasal Spray 16 gm Bottle NASAL SCH ×2 (09:46→20:50)
[2021-01-18] MEDS: Lisinopril 20 MG TAB PO SCH ×2 (09:47→20:53)
[2021-01-18] MEDS: Rifampin 300 MG CAP PO SCH ×2 (09:48→20:53)
[2021-01-18] MEDS: DAPTOmycin 500 MG VIAL SLOW IVP SCH (12:47)
[2021-01-18] MEDS: Sterile Water 10 ML VIAL FS SCH (12:47)
[2021-01-18] MEDS: Insulin Regular 300 UNITS/3 ML VIAL SC PRN (13:03)
[2021-01-18] MEDS: Loratadine 10 MG TAB PO SCH (20:52)
[2021-01-18] MEDS: Melatonin 3 MG TAB PO SCH (20:52)
[2021-01-18] MEDS: HumaLOG 300 UNITS/3 ML VIAL SC PRN (20:52)
[2021-01-18] MEDS: tiZANidine HCl 4 MG TAB PO SCH (20:53)
[2021-01-18] MEDS: Citalopram 20 MG TAB PO SCH (20:53)
[2021-01-19] MEDS: Acetaminophen 325 MG TAB PO SCH ×4 (03:04→17:20)
[2021-01-19] MEDS: Enoxaparin Sodium 40 MG/0.4 ML SYRINGE SC SCH (08:25)
[2021-01-19] MEDS: Lantus 1000 UNITS/10 ML VIAL SC SCH ×2 (08:25→20:45)
[2021-01-19] MEDS: Fluticasone Propionate Nasal Spray 16 gm Bottle NASAL SCH ×2 (08:29→20:46)
[2021-01-19] MEDS: LACTINEX 1 TAB PO SCH (08:36)
[2021-01-19] MEDS: Aspirin 81 mg Enteric Coated Tablet PO SCH (08:36)
[2021-01-19] MEDS: Amlodipine 5 MG TAB PO SCH (08:36)
[2021-01-19] MEDS: Ferrous Sulfate 325 MG TAB PO SCH (08:37)
[2021-01-19] MEDS: Lisinopril 20 MG TAB PO SCH ×2 (08:37→20:49)
[2021-01-19] MEDS: Multivitamin W/ Minerals 1 TAB PO SCH (08:37)
[2021-01-19] MEDS: Magnesium Oxide 400 MG TAB PO SCH ×2 (08:38→17:19)
[2021-01-19] MEDS: Rifampin 300 MG CAP PO SCH ×2 (11:00→20:49)
[2021-01-19] MEDS: DAPTOmycin 500 MG VIAL SLOW IVP SCH (11:02)
[2021-01-19] MEDS: Sterile Water 10 ML VIAL FS SCH (11:14)
[2021-01-19] MEDS: HumaLOG 300 UNITS/3 ML VIAL SC PRN ×2 (11:45→17:18)
[2021-01-19] MEDS ORDERED: Dextrose 50% Abboject 50 ML SYRINGE SLOW IVP PRN (18:46)
[2021-01-19] MEDS: Melatonin 3 MG TAB PO SCH (20:48)
[2021-01-19] MEDS: Loratadine 10 MG TAB PO SCH (20:49)
[2021-01-19] MEDS: Citalopram 20 MG TAB PO SCH (20:49)
[2021-01-19] MEDS: tiZANidine HCl 4 MG TAB PO SCH (20:50)
[2021-01-20] MEDS: Acetaminophen 325 MG TAB PO SCH ×5 (00:04→23:34)
[2021-01-20] MEDS: HumaLOG 300 UNITS/3 ML VIAL SC PRN ×2 (05:28→17:14)
[2021-01-20] MEDS: Enoxaparin Sodium 40 MG/0.4 ML SYRINGE SC SCH (09:14)
[2021-01-20] MEDS: Magnesium Oxide 400 MG TAB PO SCH ×2 (09:15→17:11)
[2021-01-20] MEDS: Ferrous Sulfate 325 MG TAB PO SCH (09:16)
[2021-01-20] MEDS: Rifampin 300 MG CAP PO SCH ×2 (09:16→21:08)
[2021-01-20] MEDS: Multivitamin W/ Minerals 1 TAB PO SCH (09:16)
[2021-01-20] MEDS: Lisinopril 20 MG TAB PO SCH ×2 (09:16→21:08)
[2021-01-20] MEDS: Aspirin 81 mg Enteric Coated Tablet PO SCH (09:16)
[2021-01-20] MEDS: Amlodipine 5 MG TAB PO SCH (09:16)
[2021-01-20] MEDS: LACTINEX 1 TAB PO SCH (09:17)
[2021-01-20] MEDS: Fluticasone Propionate Nasal Spray 16 gm Bottle NASAL SCH ×2 (09:17→21:07)
[2021-01-20] MEDS: Lantus 1000 UNITS/10 ML VIAL SC SCH ×2 (09:20→21:07)
[2021-01-20] MEDS: Sterile Water 10 ML VIAL FS SCH (11:59)
[2021-01-20] MEDS: DAPTOmycin 500 MG VIAL SLOW IVP SCH (11:59)
[2021-01-20] MEDS: tiZANidine HCl 4 MG TAB PO SCH (21:08)
[2021-01-20] MEDS: Loratadine 10 MG TAB PO SCH (21:08)
[2021-01-20] MEDS: Melatonin 3 MG TAB PO SCH (21:08)
[2021-01-20] MEDS: Citalopram 20 MG TAB PO SCH (21:08)
[2021-01-21] MEDS: Acetaminophen 325 MG TAB PO SCH ×3 (05:23→17:01)
[2021-01-21] MEDS: HumaLOG 300 UNITS/3 ML VIAL SC PRN ×2 (05:24→17:04)
[2021-01-21] MEDS: Ferrous Sulfate 325 MG TAB PO SCH (08:43)
[2021-01-21] MEDS: Enoxaparin Sodium 40 MG/0.4 ML SYRINGE SC SCH (08:43)
[2021-01-21] MEDS: Aspirin 81 mg Enteric Coated Tablet PO SCH (08:43)
[2021-01-21] MEDS: Multivitamin W/ Minerals 1 TAB PO SCH (08:43)
[2021-01-21] MEDS: Lisinopril 20 MG TAB PO SCH ×2 (08:43→20:59)
[2021-01-21] MEDS: Rifampin 300 MG CAP PO SCH ×2 (08:43→21:00)
[2021-01-21] MEDS: Fluticasone Propionate Nasal Spray 16 gm Bottle NASAL SCH ×2 (08:44→20:56)
[2021-01-21] MEDS: Lantus 1000 UNITS/10 ML VIAL SC SCH ×2 (08:44→21:01)
[2021-01-21] MEDS: Magnesium Oxide 400 MG TAB PO SCH ×2 (08:44→17:01)
[2021-01-21] MEDS: Amlodipine 5 MG TAB PO SCH (08:44)
[2021-01-21] MEDS: LACTINEX 1 TAB PO SCH (08:48)
[2021-01-21] MEDS: DAPTOmycin 500 MG VIAL SLOW IVP SCH (12:31)
[2021-01-21] MEDS: Sterile Water 10 ML VIAL FS SCH (12:31)
[2021-01-21] MEDS: Loratadine 10 MG TAB PO SCH (20:58)
[2021-01-21] MEDS: tiZANidine HCl 4 MG TAB PO SCH (20:59)
[2021-01-21] MEDS: Citalopram 20 MG TAB PO SCH (20:59)
[2021-01-21] MEDS: Melatonin 3 MG TAB PO SCH (21:00)
[2021-01-22] MEDS: Acetaminophen 325 MG TAB PO SCH ×4 (00:15→17:21)
[2021-01-22] MEDS: Enoxaparin Sodium 40 MG/0.4 ML SYRINGE SC SCH (08:45)
[2021-01-22] MEDS: LACTINEX 1 TAB PO SCH (08:45)
[2021-01-22] MEDS: Magnesium Oxide 400 MG TAB PO SCH ×2 (08:46→17:21)
[2021-01-22] MEDS: Multivitamin W/ Minerals 1 TAB PO SCH (08:46)
[2021-01-22] MEDS: Aspirin 81 mg Enteric Coated Tablet PO SCH (08:47)
[2021-01-22] MEDS: Amlodipine 5 MG TAB PO SCH ×2 (08:48→08:52)
[2021-01-22] MEDS: Ferrous Sulfate 325 MG TAB PO SCH (08:48)
[2021-01-22] MEDS: Lisinopril 20 MG TAB PO SCH ×2 (08:49→20:07)
[2021-01-22] MEDS: Fluticasone Propionate Nasal Spray 16 gm Bottle NASAL SCH ×2 (08:50→20:06)
[2021-01-22] MEDS: Lantus 1000 UNITS/10 ML VIAL SC SCH ×2 (09:16→20:14)
[2021-01-22] MEDS: Rifampin 300 MG CAP PO SCH ×2 (09:25→20:12)
[2021-01-22 10:52] LABS: #Basophils 0.1 thou/uL (0.0-0.2); #Eosinphils 0.5 thou/uL (0.0-0.7); #Lymphocytes 1.9 thou/uL (1.20-3.40); #Monocytes 0.6 thou/uL (0.11-0.59); #Neutrophils 5.6 thou/uL (1.40-6.50); %Basophils 0.9 % (0.0-1.0); %Eosinophils 5.4 % (0.0-10.0); %Lymphocytes 21.5 % (21.0-51.0); %Monocytes 6.9 % (0.0-10.0); %Neutrophils 65.2 % (42.0-75.0); Hemoglobin 9.9 g/dL (12.0-16.0); Mean Corpuscular HGB CONC 30.4 g/dL (32.0-36.0); Mean Corpuscular Hemoglobin 26.4 pg (27.0-31.0); Mean Corpuscular Volume 86.8 fL (78.0-98.0); Mean Platelet Volume 6.5 fL (7.4-10.4); Platelet Count 279 thou/uL (130-400); RBC Distribution Width 16.4 % (11.5-14.5); Red Blood Cell (RBC) Count 3.75 mill/uL (4.20-5.40); White Blood Cell (WBC) Count 8.6 thou/uL (4.8-10.8)
[2021-01-22 11:04] LABS: ALT (SGPT) 13 U/L (8-55); AST (SGOT) 13 U/L (5-34); Albumin 3.5 g/dL (3.4-4.8); Alkaline Phosphatase 85 U/L (40-110); Anion Gap 14 mmol/L (10-20); BUN (Urea Nitrogen) 37 mg/dL (9.8-20.1); Bilirubin, Total 0.2 mg/dL (0.2-1.2); CRP (Inflammatory) 1.26 mg/dL (= or < 0.5); Calc. Creatinine Clearance 87 mL/min (70-130); Calcium 9.8 mg/dL (7.8-10.44); Carbon Dioxide 24 mmol/L (23-31); Chloride 103 mmol/L (98-107); Globulin 3.8 g/dL (2.4-3.5); Glucose 97 mg/dL (80-115); Protein, Total 7.3 g/dL (5.8-8.1); Sodium 137 mmol/L (136-145)
[2021-01-22] MEDS: DAPTOmycin 500 MG VIAL SLOW IVP SCH (12:36)
[2021-01-22] MEDS: Sterile Water 10 ML VIAL FS SCH (12:36)
[2021-01-22] MEDS: Melatonin 3 MG TAB PO SCH (20:07)
[2021-01-22] MEDS: Loratadine 10 MG TAB PO SCH (20:07)
[2021-01-22] MEDS: tiZANidine HCl 4 MG TAB PO SCH (20:07)
[2021-01-22] MEDS: Citalopram 20 MG TAB PO SCH (20:07)
[2021-01-23] MEDS: Acetaminophen 325 MG TAB PO SCH ×4 (00:42→16:57)
[2021-01-23] MEDS: Fluticasone Propionate Nasal Spray 16 gm Bottle NASAL SCH ×2 (09:16→21:02)
[2021-01-23] MEDS: Rifampin 300 MG CAP PO SCH ×2 (09:19→21:03)
[2021-01-23] MEDS: Magnesium Oxide 400 MG TAB PO SCH ×2 (09:19→16:57)
[2021-01-23] MEDS: Aspirin 81 mg Enteric Coated Tablet PO SCH (09:19)
[2021-01-23] MEDS: Lisinopril 20 MG TAB PO SCH ×2 (09:19→21:03)
[2021-01-23] MEDS: Amlodipine 5 MG TAB PO SCH (09:19)
[2021-01-23] MEDS: Multivitamin W/ Minerals 1 TAB PO SCH (09:19)
[2021-01-23] MEDS: Ferrous Sulfate 325 MG TAB PO SCH (09:19)
[2021-01-23] MEDS: Enoxaparin Sodium 40 MG/0.4 ML SYRINGE SC SCH (09:20)
[2021-01-23] MEDS: Lantus 1000 UNITS/10 ML VIAL SC SCH ×2 (09:20→21:04)
[2021-01-23] MEDS: LACTINEX 1 TAB PO SCH (09:20)
[2021-01-23] MEDS: Sterile Water 10 ML VIAL FS SCH (11:49)
[2021-01-23] MEDS: DAPTOmycin 500 MG VIAL SLOW IVP SCH (11:49)
[2021-01-23] MEDS: Melatonin 3 MG TAB PO SCH (21:03)
[2021-01-23] MEDS: Loratadine 10 MG TAB PO SCH (21:03)
[2021-01-23] MEDS: tiZANidine HCl 4 MG TAB PO SCH (21:03)
[2021-01-23] MEDS: Citalopram 20 MG TAB PO SCH (21:04)
[2021-01-24] MEDS: Acetaminophen 325 MG TAB PO SCH ×5 (00:07→23:47)
[2021-01-24] MEDS: Enoxaparin Sodium 40 MG/0.4 ML SYRINGE SC SCH (08:21)
[2021-01-24] MEDS: Magnesium Oxide 400 MG TAB PO SCH ×2 (08:22→17:07)
[2021-01-24] MEDS: Lisinopril 20 MG TAB PO SCH ×2 (08:24→20:57)
[2021-01-24] MEDS: Aspirin 81 mg Enteric Coated Tablet PO SCH (08:24)
[2021-01-24] MEDS: Ferrous Sulfate 325 MG TAB PO SCH (08:24)
[2021-01-24] MEDS: Multivitamin W/ Minerals 1 TAB PO SCH (08:24)
[2021-01-24] MEDS: LACTINEX 1 TAB PO SCH ×2 (08:25→20:59)
[2021-01-24] MEDS: Fluticasone Propionate Nasal Spray 16 gm Bottle NASAL SCH ×2 (08:25→20:53)
[2021-01-24] MEDS: Amlodipine 5 MG TAB PO SCH (08:25)
[2021-01-24] MEDS: Lantus 1000 UNITS/10 ML VIAL SC SCH ×2 (08:54→20:58)
[2021-01-24] MEDS: Rifampin 300 MG CAP PO SCH ×2 (08:59→20:57)
[2021-01-24] MEDS: DAPTOmycin 500 MG VIAL SLOW IVP SCH (12:30)
[2021-01-24] MEDS: Sterile Water 10 ML VIAL FS SCH (12:31)
[2021-01-24] MEDS: HumaLOG 300 UNITS/3 ML VIAL SC PRN ×2 (17:05→20:58)
[2021-01-24] MEDS: Citalopram 20 MG TAB PO SCH (20:56)
[2021-01-24] MEDS: Loratadine 10 MG TAB PO SCH (20:56)
[2021-01-24] MEDS: tiZANidine HCl 4 MG TAB PO SCH (20:57)
[2021-01-24] MEDS: Melatonin 3 MG TAB PO SCH (20:57)
[2021-01-25] MEDS: Acetaminophen 325 MG TAB PO SCH ×3 (06:07→17:01)
[2021-01-25] MEDS: HumaLOG 300 UNITS/3 ML VIAL SC PRN ×2 (06:07→16:41)
[2021-01-25] MEDS: Ferrous Sulfate 325 MG TAB PO SCH (08:57)
[2021-01-25] MEDS: Enoxaparin Sodium 40 MG/0.4 ML SYRINGE SC SCH (08:57)
[2021-01-25] MEDS: Magnesium Oxide 400 MG TAB PO SCH ×2 (08:57→16:39)
[2021-01-25] MEDS: Multivitamin W/ Minerals 1 TAB PO SCH (08:58)
[2021-01-25] MEDS: Aspirin 81 mg Enteric Coated Tablet PO SCH (08:58)
[2021-01-25] MEDS: Fluticasone Propionate Nasal Spray 16 gm Bottle NASAL SCH ×2 (08:58→20:16)
[2021-01-25] MEDS: LACTINEX 1 TAB PO SCH ×2 (08:59→20:18)
[2021-01-25] MEDS: Amlodipine 5 MG TAB PO SCH (08:59)
[2021-01-25] MEDS: Lisinopril 20 MG TAB PO SCH ×2 (09:00→20:19)
[2021-01-25] MEDS: Rifampin 300 MG CAP PO SCH ×2 (09:01→20:19)
[2021-01-25] MEDS: Lantus 1000 UNITS/10 ML VIAL SC SCH ×2 (09:02→20:17)
[2021-01-25] MEDS ORDERED: Sodium Chloride 0.9% 10 ML ONE (12:30)
[2021-01-25] MEDS: DAPTOmycin 500 MG VIAL SLOW IVP SCH (12:33)
[2021-01-25] MEDS: Sterile Water 10 ML VIAL FS SCH (12:33)
[2021-01-25] MEDS: Citalopram 20 MG TAB PO SCH (20:17)
[2021-01-25] MEDS: Melatonin 3 MG TAB PO SCH (20:18)
[2021-01-25] MEDS: tiZANidine HCl 4 MG TAB PO SCH (20:18)
[2021-01-25] MEDS: Loratadine 10 MG TAB PO SCH (20:19)
[2021-01-26] MEDS: Acetaminophen 325 MG TAB PO SCH ×5 (02:30→23:45)
[2021-01-26] MEDS: Lantus 1000 UNITS/10 ML VIAL SC SCH ×2 (08:37→21:42)
[2021-01-26] MEDS: Magnesium Oxide 400 MG TAB PO SCH ×2 (08:40→17:37)
[2021-01-26] MEDS: Ferrous Sulfate 325 MG TAB PO SCH (08:40)
[2021-01-26] MEDS: LACTINEX 1 TAB PO SCH ×2 (08:40→21:35)
[2021-01-26] MEDS: Aspirin 81 mg Enteric Coated Tablet PO SCH (08:40)
[2021-01-26] MEDS: Multivitamin W/ Minerals 1 TAB PO SCH (08:40)
[2021-01-26] MEDS: Lisinopril 20 MG TAB PO SCH ×2 (08:41→21:42)
[2021-01-26] MEDS: Enoxaparin Sodium 40 MG/0.4 ML SYRINGE SC SCH (08:43)
[2021-01-26] MEDS: Amlodipine 5 MG TAB PO SCH (08:49)
[2021-01-26] MEDS: Fluticasone Propionate Nasal Spray 16 gm Bottle NASAL SCH ×2 (08:50→21:35)
[2021-01-26] MEDS: Rifampin 300 MG CAP PO SCH ×2 (08:50→21:41)
[2021-01-26] MEDS: Sterile Water 10 ML VIAL FS SCH (12:31)
[2021-01-26] MEDS: DAPTOmycin 500 MG VIAL SLOW IVP SCH (12:31)
[2021-01-26] MEDS: HumaLOG 300 UNITS/3 ML VIAL SC PRN ×2 (17:38→21:42)
[2021-01-26] MEDS: tiZANidine HCl 4 MG TAB PO SCH (21:41)
[2021-01-26] MEDS: Loratadine 10 MG TAB PO SCH (21:41)
[2021-01-26] MEDS: Citalopram 20 MG TAB PO SCH (21:41)
[2021-01-26] MEDS: Melatonin 3 MG TAB PO SCH (21:42)
[2021-01-27] MEDS: Acetaminophen 325 MG TAB PO SCH ×4 (06:01→23:35)
[2021-01-27] MEDS: LACTINEX 1 TAB PO SCH ×2 (09:16→21:24)
[2021-01-27] MEDS: Enoxaparin Sodium 40 MG/0.4 ML SYRINGE SC SCH (09:16)
[2021-01-27] MEDS: Fluticasone Propionate Nasal Spray 16 gm Bottle NASAL SCH ×2 (09:16→21:24)
[2021-01-27] MEDS: Aspirin 81 mg Enteric Coated Tablet PO SCH (09:17)
[2021-01-27] MEDS: Magnesium Oxide 400 MG TAB PO SCH ×2 (09:17→17:33)
[2021-01-27] MEDS: Ferrous Sulfate 325 MG TAB PO SCH (09:17)
[2021-01-27] MEDS: Multivitamin W/ Minerals 1 TAB PO SCH (09:17)
[2021-01-27] MEDS: Lisinopril 20 MG TAB PO SCH ×2 (09:17→21:24)
[2021-01-27] MEDS: Lantus 1000 UNITS/10 ML VIAL SC SCH ×2 (09:18→21:25)
[2021-01-27] MEDS: Rifampin 300 MG CAP PO SCH ×2 (09:18→21:24)
[2021-01-27] MEDS: Amlodipine 5 MG TAB PO SCH (09:18)
[2021-01-27] MEDS: Sterile Water 10 ML VIAL FS SCH (12:57)
[2021-01-27] MEDS: DAPTOmycin 500 MG VIAL SLOW IVP SCH (12:57)
[2021-01-27] MEDS: Citalopram 20 MG TAB PO SCH (21:23)
[2021-01-27] MEDS: tiZANidine HCl 4 MG TAB PO SCH (21:24)
[2021-01-27] MEDS: Loratadine 10 MG TAB PO SCH (21:24)
[2021-01-27] MEDS: Melatonin 3 MG TAB PO SCH (23:35)
[2021-01-28] MEDS: Acetaminophen 325 MG TAB PO SCH ×3 (06:14→17:55)
[2021-01-28] MEDS: Multivitamin W/ Minerals 1 TAB PO SCH (09:02)
[2021-01-28] MEDS: Magnesium Oxide 400 MG TAB PO SCH ×2 (09:02→17:55)
[2021-01-28] MEDS: LACTINEX 1 TAB PO SCH ×2 (09:02→20:56)
[2021-01-28] MEDS: Amlodipine 5 MG TAB PO SCH (09:02)
[2021-01-28] MEDS: Ferrous Sulfate 325 MG TAB PO SCH (09:03)
[2021-01-28] MEDS: Fluticasone Propionate Nasal Spray 16 gm Bottle NASAL SCH ×2 (09:04→20:50)
[2021-01-28] MEDS: Enoxaparin Sodium 40 MG/0.4 ML SYRINGE SC SCH (09:04)
[2021-01-28] MEDS: Lisinopril 20 MG TAB PO SCH ×2 (09:04→20:52)
[2021-01-28] MEDS: Lantus 1000 UNITS/10 ML VIAL SC SCH ×2 (09:04→20:50)
[2021-01-28] MEDS: Aspirin 81 mg Enteric Coated Tablet PO SCH (09:05)
[2021-01-28] MEDS: Rifampin 300 MG CAP PO SCH ×2 (09:14→20:51)
[2021-01-28] MEDS: DAPTOmycin 500 MG VIAL SLOW IVP SCH (13:02)
[2021-01-28] MEDS: Sterile Water 10 ML VIAL FS SCH (13:02)
[2021-01-28] MEDS: HumaLOG 300 UNITS/3 ML VIAL SC PRN (20:50)
[2021-01-28] MEDS: Melatonin 3 MG TAB PO SCH (20:51)
[2021-01-28] MEDS: Loratadine 10 MG TAB PO SCH (20:52)
[2021-01-28] MEDS: Citalopram 20 MG TAB PO SCH (20:52)
[2021-01-28] MEDS: tiZANidine HCl 4 MG TAB PO SCH (20:52)
[2021-01-29] MEDS: Acetaminophen 325 MG TAB PO SCH ×4 (00:49→17:08)
[2021-01-29] MEDS: Ferrous Sulfate 325 MG TAB PO SCH (09:12)
[2021-01-29] MEDS: Magnesium Oxide 400 MG TAB PO SCH ×2 (09:13→17:08)
[2021-01-29] MEDS: Multivitamin W/ Minerals 1 TAB PO SCH (09:13)
[2021-01-29] MEDS: Amlodipine 5 MG TAB PO SCH (09:13)
[2021-01-29] MEDS: Enoxaparin Sodium 40 MG/0.4 ML SYRINGE SC SCH (09:13)
[2021-01-29] MEDS: Rifampin 300 MG CAP PO SCH ×2 (09:13→21:23)
[2021-01-29] MEDS: LACTINEX 1 TAB PO SCH ×2 (09:14→21:23)
[2021-01-29] MEDS: Lisinopril 20 MG TAB PO SCH ×2 (09:14→21:23)
[2021-01-29] MEDS: Fluticasone Propionate Nasal Spray 16 gm Bottle NASAL SCH ×2 (09:15→21:22)
[2021-01-29] MEDS: Aspirin 81 mg Enteric Coated Tablet PO SCH (09:16)
[2021-01-29] MEDS: Lantus 1000 UNITS/10 ML VIAL SC SCH ×2 (09:18→21:24)
[2021-01-29] MEDS: Sterile Water 10 ML VIAL FS SCH (12:31)
[2021-01-29] MEDS: DAPTOmycin 500 MG VIAL SLOW IVP SCH (12:31)
[2021-01-29 13:14] LABS: #Basophils 0.1 thou/uL (0.0-0.2); #Eosinphils 0.4 thou/uL (0.0-0.7); #Monocytes 0.6 thou/uL (0.11-0.59); #Neutrophils 4.9 thou/uL (1.40-6.50); %Basophils 1.2 % (0.0-1.0); %Eosinophils 4.5 % (0.0-10.0); %Lymphocytes 24.8 % (21.0-51.0); %Monocytes 7.3 % (0.0-10.0); %Neutrophils 62.3 % (42.0-75.0); Hemoglobin 9.1 g/dL (12.0-16.0); Mean Corpuscular HGB CONC 31.7 g/dL (32.0-36.0); Mean Corpuscular Hemoglobin 27.3 pg (27.0-31.0); Mean Corpuscular Volume 86.2 fL (78.0-98.0); Mean Platelet Volume 6.4 fL (7.4-10.4); Platelet Count 252 thou/uL (130-400); RBC Distribution Width 16.3 % (11.5-14.5); Red Blood Cell (RBC) Count 3.33 mill/uL (4.20-5.40); White Blood Cell (WBC) Count 7.9 thou/uL (4.8-10.8)
[2021-01-29 13:20] LABS: ALT (SGPT) 16 U/L (8-55); AST (SGOT) 15 U/L (5-34); Albumin 3.3 g/dL (3.4-4.8); Alkaline Phosphatase 85 U/L (40-110); Anion Gap 14 mmol/L (10-20); BUN (Urea Nitrogen) 35 mg/dL (9.8-20.1); Bilirubin, Total 0.2 mg/dL (0.2-1.2); Calc. Creatinine Clearance 83 mL/min (70-130); Calcium 9.2 mg/dL (7.8-10.44); Carbon Dioxide 23 mmol/L (23-31); Chloride 104 mmol/L (98-107); Glucose 183 mg/dL (80-115); Potassium 4.3 mmol/L (3.5-5.1); Protein, Total 6.3 g/dL (5.8-8.1); Sodium 137 mmol/L (136-145)
[2021-01-29] MEDS: Melatonin 3 MG TAB PO SCH (21:23)
[2021-01-29] MEDS: tiZANidine HCl 4 MG TAB PO SCH (21:23)
[2021-01-29] MEDS: Citalopram 20 MG TAB PO SCH (21:23)
[2021-01-29] MEDS: Loratadine 10 MG TAB PO SCH (21:23)
[2021-01-29] MEDS: HumaLOG 300 UNITS/3 ML VIAL SC PRN (21:24)
[2021-01-30] MEDS: Acetaminophen 325 MG TAB PO SCH ×5 (05:27→22:39)
[2021-01-30] MEDS: Ferrous Sulfate 325 MG TAB PO SCH (09:03)
[2021-01-30] MEDS: LACTINEX 1 TAB PO SCH ×2 (09:03→20:43)
[2021-01-30] MEDS: Multivitamin W/ Minerals 1 TAB PO SCH (09:03)
[2021-01-30] MEDS: Amlodipine 5 MG TAB PO SCH (09:03)
[2021-01-30] MEDS: Rifampin 300 MG CAP PO SCH ×2 (09:03→20:42)
[2021-01-30] MEDS: Enoxaparin Sodium 40 MG/0.4 ML SYRINGE SC SCH (09:03)
[2021-01-30] MEDS: Aspirin 81 mg Enteric Coated Tablet PO SCH (09:04)
[2021-01-30] MEDS: Lisinopril 20 MG TAB PO SCH ×2 (09:04→20:42)
[2021-01-30] MEDS: Magnesium Oxide 400 MG TAB PO SCH ×2 (09:04→17:16)
[2021-01-30] MEDS: Fluticasone Propionate Nasal Spray 16 gm Bottle NASAL SCH ×2 (09:05→20:41)
[2021-01-30] MEDS: Lantus 1000 UNITS/10 ML VIAL SC SCH ×2 (09:05→20:40)
[2021-01-30] MEDS: Sterile Water 10 ML VIAL FS SCH (12:10)
[2021-01-30] MEDS: DAPTOmycin 500 MG VIAL SLOW IVP SCH (12:10)
[2021-01-30] MEDS: tiZANidine HCl 4 MG TAB PO SCH (20:43)
[2021-01-30] MEDS: Loratadine 10 MG TAB PO SCH (20:43)
[2021-01-30] MEDS: Citalopram 20 MG TAB PO SCH (20:43)
[2021-01-30] MEDS: Melatonin 3 MG TAB PO SCH (20:43)
[2021-01-31] MEDS: Acetaminophen 325 MG TAB PO SCH ×4 (05:25→20:49)
[2021-01-31] MEDS: Fluticasone Propionate Nasal Spray 16 gm Bottle NASAL SCH ×2 (09:03→20:20)
[2021-01-31] MEDS: Enoxaparin Sodium 40 MG/0.4 ML SYRINGE SC SCH (09:03)
[2021-01-31] MEDS: Lantus 1000 UNITS/10 ML VIAL SC SCH ×2 (09:03→20:22)
[2021-01-31] MEDS: Lisinopril 20 MG TAB PO SCH ×2 (09:04→20:23)
[2021-01-31] MEDS: Rifampin 300 MG CAP PO SCH ×2 (09:04→20:23)
[2021-01-31] MEDS: Multivitamin W/ Minerals 1 TAB PO SCH (09:04)
[2021-01-31] MEDS: Magnesium Oxide 400 MG TAB PO SCH ×2 (09:04→16:52)
[2021-01-31] MEDS: Aspirin 81 mg Enteric Coated Tablet PO SCH (09:04)
[2021-01-31] MEDS: LACTINEX 1 TAB PO SCH ×2 (09:04→20:22)
[2021-01-31] MEDS: Ferrous Sulfate 325 MG TAB PO SCH (09:04)
[2021-01-31] MEDS: Amlodipine 5 MG TAB PO SCH (09:05)
[2021-01-31] MEDS: DAPTOmycin 500 MG VIAL SLOW IVP SCH (12:58)
[2021-01-31] MEDS: Sterile Water 10 ML VIAL FS SCH (13:40)
[2021-01-31] MEDS: HumaLOG 300 UNITS/3 ML VIAL SC PRN (16:40)
[2021-01-31] MEDS: tiZANidine HCl 4 MG TAB PO SCH (20:22)
[2021-01-31] MEDS: Melatonin 3 MG TAB PO SCH (20:22)
[2021-01-31] MEDS: Citalopram 20 MG TAB PO SCH (20:23)
[2021-01-31] MEDS: Loratadine 10 MG TAB PO SCH (20:23)
[2021-02-01] MEDS: HumaLOG 300 UNITS/3 ML VIAL SC PRN (05:53)
[2021-02-01] MEDS: Acetaminophen 325 MG TAB PO SCH ×4 (05:53→22:01)
[2021-02-01] MEDS: Magnesium Oxide 400 MG TAB PO SCH ×2 (08:54→17:47)
[2021-02-01] MEDS: Ferrous Sulfate 325 MG TAB PO SCH (08:54)
[2021-02-01] MEDS: Multivitamin W/ Minerals 1 TAB PO SCH (09:13)
[2021-02-01] MEDS: Rifampin 300 MG CAP PO SCH ×2 (09:13→20:13)
[2021-02-01] MEDS: LACTINEX 1 TAB PO SCH ×2 (09:13→20:11)
[2021-02-01] MEDS: Aspirin 81 mg Enteric Coated Tablet PO SCH (09:13)
[2021-02-01] MEDS: Amlodipine 5 MG TAB PO SCH (09:13)
[2021-02-01] MEDS: Enoxaparin Sodium 40 MG/0.4 ML SYRINGE SC SCH (09:14)
[2021-02-01] MEDS: Lisinopril 20 MG TAB PO SCH ×2 (09:15→20:11)
[2021-02-01] MEDS: Lantus 1000 UNITS/10 ML VIAL SC SCH ×2 (09:16→20:10)
[2021-02-01] MEDS: Fluticasone Propionate Nasal Spray 16 gm Bottle NASAL SCH ×2 (09:16→20:10)
[2021-02-01] MEDS: DAPTOmycin 500 MG VIAL SLOW IVP SCH (12:57)
[2021-02-01] MEDS: Sterile Water 10 ML VIAL FS SCH (12:57)
[2021-02-01] MEDS: Melatonin 3 MG TAB PO SCH (20:11)
[2021-02-01] MEDS: Loratadine 10 MG TAB PO SCH (20:11)
[2021-02-01] MEDS: Citalopram 20 MG TAB PO SCH (20:12)
[2021-02-01] MEDS: tiZANidine HCl 4 MG TAB PO SCH (20:12)
[2021-02-02 05:24] VITALS: BMI 42.3
[2021-02-02] MEDS: Acetaminophen 325 MG TAB PO SCH ×4 (05:41→23:28)
[2021-02-02] MEDS: Magnesium Oxide 400 MG TAB PO SCH ×2 (09:48→17:11)
[2021-02-02] MEDS: Rifampin 300 MG CAP PO SCH ×2 (09:48→20:49)
[2021-02-02] MEDS: LACTINEX 1 TAB PO SCH ×2 (09:48→20:49)
[2021-02-02] MEDS: Amlodipine 5 MG TAB PO SCH (09:48)
[2021-02-02] MEDS: Aspirin 81 mg Enteric Coated Tablet PO SCH (09:49)
[2021-02-02] MEDS: Enoxaparin Sodium 40 MG/0.4 ML SYRINGE SC SCH (09:49)
[2021-02-02] MEDS: Lisinopril 20 MG TAB PO SCH ×2 (09:49→20:49)
[2021-02-02] MEDS: Multivitamin W/ Minerals 1 TAB PO SCH (09:49)
[2021-02-02] MEDS: Fluticasone Propionate Nasal Spray 16 gm Bottle NASAL SCH ×2 (09:49→20:40)
[2021-02-02] MEDS: Ferrous Sulfate 325 MG TAB PO SCH (09:50)
[2021-02-02] MEDS: Lantus 1000 UNITS/10 ML VIAL SC SCH (09:50)
[2021-02-02] MEDS: DAPTOmycin 500 MG VIAL SLOW IVP SCH (13:07)
[2021-02-02] MEDS: Sterile Water 10 ML VIAL FS SCH (13:36)
[2021-02-02] MEDS: HumaLOG 300 UNITS/3 ML VIAL SC PRN (17:11)
[2021-02-02] MEDS: tiZANidine HCl 4 MG TAB PO SCH (20:49)
[2021-02-02] MEDS: Citalopram 20 MG TAB PO SCH (20:49)
[2021-02-02] MEDS: Melatonin 3 MG TAB PO SCH (20:49)
[2021-02-02] MEDS: Loratadine 10 MG TAB PO SCH (20:49)
[2021-02-02] MEDS ORDERED: Lantus 1000 UNITS/10 ML VIAL SC SCH (21:00)
[2021-02-03] MEDS: Acetaminophen 325 MG TAB PO SCH ×2 (05:07→13:23)
[2021-02-03] MEDS: Lisinopril 20 MG TAB PO SCH (09:36)
[2021-02-03] MEDS: LACTINEX 1 TAB PO SCH (09:36)
[2021-02-03] MEDS: Magnesium Oxide 400 MG TAB PO SCH (09:36)
[2021-02-03] MEDS: Multivitamin W/ Minerals 1 TAB PO SCH (09:36)
[2021-02-03] MEDS: Enoxaparin Sodium 40 MG/0.4 ML SYRINGE SC SCH (09:36)
[2021-02-03] MEDS: Ferrous Sulfate 325 MG TAB PO SCH (09:37)
[2021-02-03] MEDS: Amlodipine 5 MG TAB PO SCH (09:38)
[2021-02-03] MEDS: Fluticasone Propionate Nasal Spray 16 gm Bottle NASAL SCH (09:39)
[2021-02-03] MEDS: Rifampin 300 MG CAP PO SCH (09:39)
[2021-02-03] MEDS: Aspirin 81 mg Enteric Coated Tablet PO SCH (09:40)
[2021-02-03] MEDS: Lantus 1000 UNITS/10 ML VIAL SC SCH (09:41)
[2021-02-03] MEDS: DAPTOmycin 500 MG VIAL SLOW IVP SCH (13:24)
[2021-02-03] MEDS: Sterile Water 10 ML VIAL FS SCH (13:24)
[2021-02-03 16:49] VITALS: BP 147/72; TEMP 98
== END 2021-02-03 16:40 | disposition home health service (06) | DRG 549 ==
LOC: UNDOADMIN 14:49 → NAV ACUTE 14:49
PROVIDERS: ADMIT Internal Medicine; ATTEND Internal Medicine
DX: M00.9 Pyogenic arthritis, unspecified (principal); D62 Acute posthemorrhagic anemia; E11.65 Type 2 diabetes mellitus with hyperglycemia; E78.5 Hyperlipidemia, unspecified; D63.8 Anemia in other chronic diseases classified elsewhere; K21.9 Gastro-esophageal reflux disease without esophagitis; R53.81 Other malaise; G47.33 Obstructive sleep apnea (adult) (pediatric); F41.9 Anxiety disorder, unspecified; M62.838 Other muscle spasm; I12.9 Hypertensive chronic kidney disease with stage 1 through stage 4 chronic kidney disease, or unspecified chronic kidney disease; N18.30 Chronic kidney disease, stage 3 unspecified; E11.22 Type 2 diabetes mellitus with diabetic chronic kidney disease; F32.9 Major depressive disorder, single episode, unspecified; Z96.641 Presence of right artificial hip joint; E87.6 Hypokalemia; J30.9 Allergic rhinitis, unspecified; R79.89 Other specified abnormal findings of blood chemistry; Z79.82 Long term (current) use of aspirin; Z79.4 Long term (current) use of insulin; Z79.899 Other long term (current) drug therapy
CPT/HCPCS: 36416; 80048; 80053; 85025; 85652; 86140; 36415-59; J0878; J1650; J1815